=== PATIENT | female | born 1955 | race Caucasian/White ===

== ENCOUNTER 2017-05-01 18:49 | Emergency (ER) | payer BC ==
[~2017-05-01] VITALS: Ht 165.1 cm; Wt 71.2 kg
[2017-05-01 20:08] LABS: HEMATOCRIT 33.1 % (36.0-46.0); HEMOGLOBIN 11.7 G/DL (11.9-15.5); MCH 32.5 PG (29.0-34.0); MCHC 35.3 G/DL (30.0-36.0); MCV 91.9 FL (83-99); PLATELET COUNT 223 K/uL (156-360); RBC DIS.WIDTH-CV 11.9 % (11.8-14.6); RBC DIS.WIDTH-SD 40.3 % (39-53); WHITE BLOOD COUNT 12.5 K/uL (4.1-10.2)
[2017-05-01 20:22] LABS: CHLORIDE 109 mEq/L (99-109); POTASSIUM 3.7 mEq/L (3.7-5.4); SODIUM 139 mEq/L (136-147)
[2017-05-01 20:23] LABS: GLUCOSE 97 mg/dL (70-99)
[2017-05-01 20:27] LABS: CREATININE 0.8 mg/dL (0.6-1.3); GFR ESTIMATE (CALCULATED) > 59 mL/min/
[2017-05-01 20:28] LABS: UREA NITROGEN (BUN) 16 mg/dL (9-23)
[2017-05-01 20:30] LABS: TROP-I INTERPRETATION NEGATIVE; TROPONIN-I < 0.01 ng/mL (0.0-0.30)
[2017-05-01 20:57] VITALS: BP 136/56
== END 2017-05-01 21:04 | disposition home or self-care (01) ==
LOC: EME 18:49
PROVIDERS: Emergency Medicine
DX: R55 Syncope and collapse (principal); I49.3 Ventricular premature depolarization
CPT/HCPCS: 71046; 80048; 84484; 85027; 93005; 99281; 99285; J7030